=== PATIENT | male | born 1985 | race Caucasian/White ===

== ENCOUNTER 2017-06-12 11:04 | Emergency (ER) | payer OTHER ==
--- NOTE | 2017-06-12 13:22 | CT ---
CT CERVICAL SPINE WITH CORONAL AND SAGITTAL REFORMATIONS: HISTORY: Injury. Right-sided neck pain. FINDINGS: There is loss of cervical lordosis and minimal reversal. No acute fracture or subluxation is identif ied. POS: OFF
--- NOTE | 2017-06-12 13:40 | CT ---
CT BRAIN WITHOUT CONTRAST: HISTORY: Head injury, hit by a tree branch. The patient complains of right-sided neck pain, vision changes, d izziness, nausea, facial swelling. FINDINGS: No evidence of acute infarct, hemorrhage, midline shift, or abnormal extraaxial fluid collections is seen. The ventricular size is normal and the basilar cisterns patent. The bony calvarium is intact. There is a right-sided eye brow ring. IMPRESSION: No CT evidence of acute intracranial process. POS: OFF
--- NOTE | 2017-06-12 13:51 | CT ---
CT FACE WITHOUT CONTRAST: HISTORY: Head injury. Hit by a tree branch. COMPARISON: None. FINDINGS: A right eyebrow ring is present. There is a minimally medially displaced fracture of the frontal pro cess right maxilla. The osseous nasal septum is intact. The medial orbital rosenberg, orbital roofs, orbital floors are intact. The hard palate is intact. Mandible is intact. The ethmoids are clear. Maxillary sinuses clear as well as the frontal sinuses. Orbits are unremarkable. The mandibular condyles are intact. Normal location of the temporomandibular joints. Coronoid proce sses are intact. IMPRESSION: Minimally displaced fracture of the frontal processes of the maxilla on the right although may be sub acute or chronic. POS: [facility]
[2017-06-12] MEDS ORDERED: Ondansetron ODT 4 MG TAB ONE (14:52)
[2017-06-12] MEDS ORDERED: Acetaminophen 500 MG TAB ONE (14:52)
[2017-06-12] MEDS ORDERED: Ketorolac Tromethamine 60 MG/2 ML VIAL ONE (14:52)
== END 2017-06-12 15:16 | disposition home or self-care (01) ==
LOC: ERS 11:04
DX: S06.0X0A Concussion without loss of consciousness, initial encounter (principal); F17.210 Nicotine dependence, cigarettes, uncomplicated; W20.8XXA Other cause of strike by thrown, projected or falling object, initial encounter
CPT/HCPCS: 70450; 70486; 72125; 96372; J1885; Q0162